=== PATIENT | female | born 1945 | race Caucasian/White ===

== ENCOUNTER → 2016-08-29 | Outpatient (CLI) | payer OTHER | LOC: MMPC 11:11 | PROVIDERS: ATTEND Surgery | DX: K43.2 Incisional hernia without obstruction or gangrene (principal) | CPT/HCPCS: 99213; G0463 ==

== ENCOUNTER 2016-09-05 07:28 | Day surgery (SDC) | payer OTHER ==
[~2016-09-05 07:28] MED LIST: LIDOCAINE W/ SODIUM BICARB 0.5 ML SYR ONE; Lactated Ringers 1,000 ML PRIMARY IV ONE; ceFAZolin Inj 2gm (Premix) 50 ML IV ONE
[2016-09-05 08:04] VITALS: RESP 16
[2016-09-05] MEDS ORDERED: NORMAL SALINE 10 ML SYRINGE FLUSH IVP PRN ×2 (09:17→10:11)
[2016-09-05] MEDS ORDERED: MIDAZOLAM 5 MG/1 ML ONE (09:19)
[2016-09-05] MEDS ORDERED: fentaNYL Inj 100 MCG/2 ML VIAL ONE (09:19)
[2016-09-05] MEDS ORDERED: BUPivacaine Inj 0.5% PF (5mg/ml) 10ml vial ONE ×2 (09:29→09:54)
[2016-09-05] MEDS ORDERED: BUPivacaine Liposome/PF (Exparel) Inj 20ml vial INFIL ONE (09:40)
--- NOTE | 2016-09-05 10:08 | GEN.OPNOTE ---
Operative Note Surgery Date: 09/05/16 Preoperative Diagnosis: Abdominal wall mass Postoperative Diagnosis: Ventral hernia Procedure: Incisional herniorrhaphy with Prolene mesh Surgeon: Wilton Nichols MD Anesthesia Provider: Lenny Ware CRNA Anesthesia Type: Local, MAC Estimated Blood Loss (mL): 3 Fluids: 2 g of Ancef. Lactated Ringer's please see anesthesia notes in EMR Pathology: None sent Indications: Patient has abdominal wall mass. On physical exam is unclear whether this and actually a ventral hernia versus a lipoma. Patient wonders exploratory surgery and have fixed the hernia are excision of lipoma Findings: A ventral hernia.Is very weeks of Prolene mesh was used to repair it Operative Summary: Patient is brought in operative room. Placed supine position. Given IV sedation. Timeout performed per protocol. Prepped draped sterile fashion. I infiltrated quarter percent Marcaine 10 mL local anesthesia. After adequate anesthesia made midline incision overlying the mass. The lesion actually was the hernia sac with preperitoneal fat in it. I doubly dissect this from subcutaneous tissue. Freshen up the fascial defect. Reduced the hernia defect. I closed the defect with 0 Prolene continuous running suture. I cut a piece of Prolene mesh ended online patch "so on the mesh to the fascia with 0 Prolene Suture. Couple Simple Interrupted Switch Take Pressure off the Suture Line. I [place] the Mesh Was needed because the patient has very weak fascia. I infiltrated 20 mL of Exoprel for postoperative pain control. Closed the subcutaneous fascial defect with simple interrupted 2-0 Vicryl sutures. Skin reapproximated skin maegan. Sterile dressings were applied.
[2016-09-05] MEDS ORDERED: MORPHINE SULFATE 2 MG/1 ML IVP PRN (10:11)
[2016-09-05] MEDS ORDERED: HYDROcodone-APAP 7.5 MG-325 MG TABLET PO PRN (10:11)
[2016-09-05] MEDS ORDERED: ONDANSETRON 4 MG/2 ML VIAL IVP PRN (10:11)
[2016-09-05] MEDS ORDERED: HYDROcodone-APAP 7.5 MG-325 MG TABLET PO ONE (11:39)
[2016-09-05 13:39] VITALS: TEMP 98.6
== END 2016-09-05 12:30 | disposition home or self-care (01) ==
LOC: SDSC 07:28
PROVIDERS: ATTEND Surgery
DX: K43.9 Ventral hernia without obstruction or gangrene (principal)
CPT/HCPCS: 49560; 49568; C9290; J0690; J2704; J3010; J2250; J3490; J7120

== ENCOUNTER → 2016-09-14 | Outpatient (CLI) | payer OTHER | LOC: MMPC 11:11 | PROVIDERS: ATTEND Surgery | DX: K42.9 Umbilical hernia without obstruction or gangrene (principal) ==